=== PATIENT | male | born 1960 | race Caucasian/White ===

== ENCOUNTER 2018-11-24 08:34 | Emergency (ER) | payer OTHER ==
[~2018-11-24] VITALS: Ht 177.8 cm; Wt 82.8 kg
[2018-11-24 08:44] VITALS: Ht 177.8 cm; Wt 82.8 kg
[2018-11-24 09:36] LABS: BASOPHIL % 0.5 % (0-2); PLATELET COUNT 273 x10^3mcL (130-400); RED CELL DISTRIBUTION WIDTH 13.7 % (11.5-14.5)
[2018-11-24 09:44] LABS: CALCIUM 9.1 mg/dL (8.5-10.1); CARBON DIOXIDE 27.7 mmol/L (21-32); CREATININE SERUM 1.4 mg/dL (0.7-1.3); POTASSIUM SERUM 3.5 mmol/L (3.5-5.1)
[2018-11-24 09:55] LABS: FREE T4 0.92 ng/dL (0.76-1.46); FREE THYROXINE INDEX 2.8 ug/dL (1.4-4.5); T3 TOTAL 1.23 ng/mL; T4(THYROXINE) 8.6 ug/dL (4.7-13.3)
[2018-11-24 09:57] LABS: ALBUMIN 3.8 g/dL (3.4-5.0); BILIRUBIN TOTAL 0.88 mg/dL (0.20-1.00); CK-MB 1.8 ng/mL (0-3.6); TOTAL PROTEIN, SERUM 7.8 g/dL (6.4-8.2)
[2018-11-24 10:14] LABS: UA SPECIFIC GRAVITY 1.025 (1.005-1.035); microscopic required? YES; urine erythrocyte NEGATIVE (NEGATIVE)
[2018-11-24 10:51] LABS: C REACTIVE PROTEIN 18.7 mg/dL (<=0.9)
[2018-11-24 11:04] LABS: ERYTHROCYTE SED RATE 31 mm/hr (0-20)
[2018-11-24 11:46] VITALS: BP 155/100
== END 2018-11-24 11:46 | disposition home or self-care (01) ==
LOC: ED 08:34
PROVIDERS: Specialist
DX: K04.7 Periapical abscess without sinus (principal); I10 Essential (primary) hypertension
CPT/HCPCS: 84439; J1885; J7030; Q9967